=== PATIENT | female | born 1960 | race Caucasian/White ===

== ENCOUNTER 2017-02-08 21:37 | Emergency (ER) | payer BC ==
--- NOTE | 2017-02-08 22:10 | ERNOTE ---
Medical Problem HPI - Narrative Date of Service: 02/08/17 - General Chief Complaint: Screening, Blood Pressure Time Seen by Provider: 02/08/17 21:53 Source: patient - Immun/Allergies/Home Medications Immunizations: IMMUNIZATION HX Immunizations Up to Date Yes History of Influenza Vaccine No Hx Pneumococcal Vaccination No Allergies/Adverse Reactions: Allergies Penicillins Allergy (Verified 02/08/17 21:51) Home Medications: HOME MEDICATIONS ALPRAZolam [Xanax] 0.5 mg PO HS 01/23/15 [Last Taken Unknown] Lisinopril/Hydrochlorothiazide [Lisinopril-Hctz 10-12.5 mg Tab] 1 each PO DAILY #20 tablet 01/23/15 [Last Taken Unknown] Zolpidem Tartrate [Ambien] 10 mg PO HS PRN 01/23/15 [Last Taken Unknown] Meloxicam [Mobic] 15 mg PO DAILY 02/08/17 [Last Taken Unknown] Pantoprazole Sodium [Protonix] 20 mg PO DAILY 02/08/17 [Last Taken Unknown] metFORMIN HCL [Metformin HCl] 500 mg PO 02/08/17 [Last Taken Unknown] - History of Present History Narrative: 56 year old that complains of elevated blood pressure that was taken at home- 210/114. Took Xanax two tabslets at 2115 hours. Complaints of mild headache for the last four days, and has not taken any additional medication for it. However she is taking Meloxicam for ankle pain for the last four days. At this time the headache is minimal and is located at the left base of the skull. Denies any N/ V. diaphoresis, shortness of breath or chest pain. Date (Duration): 02/08/17 Time (Timing): 22:17 Timing: other - minima; Severity: mild Modifying Factors - (Improves): Present: other - nothing Modifying Factors - (Worsens): Present: other - nothing Review of Systems - Review of Systems Constitutional: Present: no symptoms reported EYE: Present: no symptoms reported ENT: Present: no symptoms reported Respiratory: Present: no symptoms reported Cardiology: Present: no symptoms reported Gastrointestinal/Abdominal: Present: no symptoms reported Genitourinary: Present: no symptoms reported Musculoskeletal: Present: no symptoms reported Skin: Present: no symptoms reported - Patient's Past Medical History Patient History - Medical: Diabetes Type 2 Patient History - Cardiac/Respiratory: Hypertension Patient History - Cancer: No Hx of Cancer Patient History - Surgical Procedures: , Other Patient History - Other: None LMP (females 10-50): Menopausal - Social History Living Situations: home Abuse History: No History of abuse Psych History: No pertinent hx - Immunizations Immunizations Up to Date: Yes Hx Pneumococcal Vaccination: No History of Influenza Vaccine: No Physical Exam - Physical Exam General Appearance: Present: no apparent distress Head Exam: Present: normal inspection, other - Minimal tenderness at the right base of the skull on palpation. 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 Vital Signs: Vital Signs 02/08/17 21:45 Pulse Rate 72 Respiratory 15 Rate Blood Pressure 211/98 - Progress/Reassessment Chief Complaint: Screening, Blood Pressure Progress Note-Subjective: 02/08/17 22:19 The blood pressure was retaken manually and found to be 160/92 (no medication given). The blood pressure may have been elevated due to anxiety and was improved after taking the xanax or the reading was spurious. Departure Clinical Impression: Hypertension - Departure Disposition: Home self-care Condition: Good Instructions: Hypertension, [id number] Print Language: Georgian Additional Instructions: Check your blood pressure daily at the about the same time, and record the readings. Also make notes about how you are feeling at the time. This information will help your physician decide whether to change the medications or adding new medications for you to take. Referrals: Prabha Warner ARNP [Primary Care Provider] -
[2017-02-08 22:24] VITALS: BP 157/85
== END 2017-02-08 22:20 | disposition home or self-care (01) ==
LOC: ER 21:37
DX: I10 Essential (primary) hypertension (principal)